=== PATIENT | female | born 1980 | race Caucasian/White ===

== ENCOUNTER 2019-02-15 03:32 | Inpatient (IN) | payer BC ==
[2019-02-15] MEDS ORDERED: Ondansetron PF 4 MG/2 ML Vial ONE ×2 (04:36→20:22)
[2019-02-15] MEDS ORDERED: Morphine 4 MG/ML VIAL ONE (04:36)
[2019-02-15] MEDS ORDERED: FLU VACC QS2019-20(6MOS UP)/PF 60 MCG/0.5 ML SYRINGE IM ONE (06:45)
[2019-02-15] MEDS ORDERED: Morphine 2 MG/ML SYRINGE SLOW IVP PRN ×3 (06:49→14:37)
[2019-02-15] MEDS ORDERED: Morphine 4 MG/ML VIAL IV PRN (06:50)
[2019-02-15] MEDS ORDERED: Ondansetron ODT 4 MG TAB PO PRN (06:50)
[2019-02-15] MEDS ORDERED: Ondansetron PF 4 MG/2 ML Vial IVP PRN ×2 (06:50→14:37)
--- NOTE | 2019-02-15 08:33 | ULT ---
PRELIMINARY REPORT/[facility]/EMERGENCY AFTER HOURS PROCEDURE: PROCEDURE INFORMATION: Exam: US Abdomen Limited, Right Upper Quadrant Exam date and time: 02/15/2019 4:11 AM Clinical history: 38 years old, female; Other: Diarrhea; Abdominal pain; Other: Epigastric pain that radiates to back TECHNIQUE: Imaging protocol: Real-time ultrasound of the abdomen with image documentation. Examination was focus ed on the right upper quadrant. COMPARISON: No relevant prior studies available. FINDINGS: Liver: Liver is enlarged. No masses. Gallbladder: There are multiple mobile shadowing gallstones. The gallbladder wall is thickened, approximately 8.5 mm. There is small volume of pericholecystic fluid tracking along the pancreatis he ad. Sonographic Mckenzie's sign is reportedly positive. Common bile duct: No stones. No dilation. Pancreas: Pancreas is partially obscured. Right kidney: No mass. Mild pelvocaliectasis. IMPRESSION: Findings most compatible with acute cholecystitis. Thank you for allowing us to participate in the care of your patient. Dictated and Authenticated by: Mariya Mcguire MD 02/15/2019 4:49 AM Central Time ([place] & [place]) FINAL REPORT EMERGENCY AFTER HOURS RIGHT UPPER QUADRANT ABDOMINAL ULTRASOUND: FINDINGS/IMPRESSION: I agree with the findings and impression given in the preliminary report per [facility] physician. There ar e gallstones within the gallbladder. There is a thickened gallbladder wall and a small amount of ed cholecystic fluid. This may be secondary to acute cholecystitis. Correlate with LFTs and white blood cell count.
[2019-02-15] MEDS ORDERED: Acetaminophen 1,000 MG in Premix Bag 1 BAG IVPB PRN (10:59)
[2019-02-15] MEDS ORDERED: Morphine 4 MG/ML VIAL SLOW IVP PRN ×2 (11:00→14:37)
[2019-02-15] MEDS ORDERED: Piperacillin/Tazobactam 3.375 GM VIAL ONE (13:24)
[2019-02-15] MEDS ORDERED: Sodium Chloride 0.9% 100 ML ONE (13:25)
[2019-02-15] MEDS ORDERED: Bupivacaine/Epinephrine 0.25% 30 ML VIAL ONE (13:27)
[2019-02-15] MEDS ORDERED: Midazolam HCl 2 mg/2 ml Vial ONE (13:37)
[2019-02-15] MEDS ORDERED: Fentanyl 100 MCG/2 ML VIAL ONE ×4 (13:37→15:41)
--- NOTE | 2019-02-15 13:59 | HP ---
CHIEF COMPLAINT: Abdominal pain. HISTORY OF PRESENT ILLNESS: This is a 38-year-old female with a history of pain in her upper abdomen, right worse than left, associated with nausea, started after dinner last night, severe pain overnight, came to the emergency room. After morphine and Toradol, she was still having the pain, admitted to my service for acute cholecystitis. She had, had this pain a few times before, but never is severe. PAST MEDICAL HISTORY: Includes hypertension and GERD. PAST SURGICAL HISTORY: She denies. MEDICATIONS: Include valsartan and pantoprazole. ALLERGIES: SULFA. SOCIAL HISTORY: Smokes. No alcohol or other drugs. REVIEW OF SYSTEMS: Ten-system review of systems is otherwise negative other than described above. PHYSICAL EXAMINATION: VITAL SIGNS: Blood pressure 102/64, pulse 60, respirations 20, and afebrile. HEENT: Sclerae anicteric. Oropharynx clear. NECK: No lymphadenopathy. CHEST: Clear. HEART: Regular rate and rhythm. ABDOMEN: Soft, tender in the upper abdomen, specifically right upper quadrant with localized guarding. No rebound. No abdominal or inguinal hernias. EXTREMITIES: No ischemia or edema to extremities. DIAGNOSTIC STUDIES: Ultrasound shows gallstones, evidence of acute cholecystitis. Liver function tests normal. ASSESSMENT: Acute cholecystitis. PLAN: Laparoscopic cholecystectomy. Risks, benefits and alternatives discussed. She gives consent. We will do this today. Job ID: [id number]
[2019-02-15] MEDS ORDERED: hydrALAZINE 20 MG/ML VIAL SLOW IVP PRN (14:37)
[2019-02-15] MEDS ORDERED: Dextrose 5% in Water 1,000 ML IV PRN (14:37)
[2019-02-15] MEDS ORDERED: Calcium Carbonate 500 MG ChewTAB PO PRN (14:37)
[2019-02-15] MEDS ORDERED: HYDROcodone/Acetaminophen 10/325 mg Tablet PO PRN (14:37)
[2019-02-15] MEDS ORDERED: Dextrose 50% Abboject 50 ML SYRINGE SLOW IVP PRN (14:37)
[2019-02-15] MEDS ORDERED: Mag-Al 1200 mg/1200 mg/30 ML UDCUP PO PRN (14:37)
[2019-02-15] MEDS ORDERED: D5 1/2 NS w/20 mEq KCL 1,000 ML IV SCH (14:37)
[2019-02-15] MEDS ORDERED: Promethazine HCl 25 MG/ML VIAL IM PRN ×2 (14:37→14:45)
[2019-02-15] MEDS ORDERED: Ondansetron HCl/PF 4 MG/2 ML Vial IVP PRN (14:45)
[2019-02-15] MEDS ORDERED: Promethazine HCl 25 MG/ML VIAL SLOW IVP PRN (14:45)
[2019-02-15 16:05] VITALS: TEMP 97.4
[2019-02-15 16:55] VITALS: BP 92/65
[2019-02-15] MEDS ORDERED: Lidocaine 1% PF 5 ML VIAL ONE (20:22)
[2019-02-15] MEDS ORDERED: Glycopyrrolate 0.2 MG/ML 5 ML SYRINGE ONE (20:22)
[2019-02-15] MEDS ORDERED: PROPOFOL 200 MG/20 ML VIAL ONE (20:22)
[2019-02-15] MEDS ORDERED: Dexamethasone 20 MG/5 ML VIAL ONE (20:22)
[2019-02-15] MEDS ORDERED: Rocuronium Bromide 10 MG/ML (10ML VIAL) ONE (20:22)
[2019-02-15] MEDS ORDERED: Ketorolac Tromethamine 30 MG/ML VIAL ONE (20:22)
[2019-02-15] MEDS ORDERED: Famotidine/PF 20 mg/2ml Vial SLOW IVP SCH (21:00)
[2019-02-15] MEDS ORDERED: Famotidine 20 MG TAB PO SCH (21:00)
[2019-02-16] MEDS ORDERED: Valsartan 80 MG TAB PO SCH (09:00)
[2019-02-16] MEDS ORDERED: Escitalopram Oxalate 10 mg Tablet PO SCH (09:00)
--- NOTE | 2019-02-16 14:27 | OP ---
DATE OF PROCEDURE: 02/15/2019 PREOPERATIVE DIAGNOSIS: Acute cholecystitis. POSTOPERATIVE DIAGNOSIS: Acute cholecystitis. PROCEDURE PERFORMED: Laparoscopic cholecystectomy. ANESTHESIA: General. ESTIMATED BLOOD LOSS: Minimal. COMPLICATIONS: None. SPECIMENS: Gallbladder. FINDINGS: Acute cholecystitis. PROCEDURE IN DETAIL: The patient was taken to the operating room and laid supine on the operating room table. After general anesthetic was obtained, the abdomen was prepped and draped in a sterile fashion. A curved incision was made below the umbilicus. Cautery was used to dissect down to the umbilical fascia. Umbilical fascia was incised and held up using a Kim. The abdominal cavity was entered using a Ann clamp. Holding stitch of Vicryl was placed on each side of the fascia. Bearden trocar was placed. High-flow pneumoperitoneum was obtained. An upper midline 5 mm port and 2 right upper quadrant 5 mm ports were placed under direct camera visualization. The gallbladder was retracted from the gallbladder fossa. The peritoneum of the gallbladder was opened anteriorly and posteriorly. The critical view triangle was seen showing only the cystic duct and cystic artery branching from medial to lateral. There were no other branching structures. Two clips were placed proximally on the cystic duct and one laterally. It was cut using laparoscopic scissors. The cystic artery was taken in the same way. Electrocautery was then used to dissect the gallbladder out of the gallbladder fossa. The gallbladder was placed in an Endo catch bag and brought out through the Bearden. There was no bleeding or bile in the liver bed. The cystic duct stump and cystic artery stump were intact, without evidence of extravasation or bleeding. All port sites were infiltrated using local anesthesia. All ports were removed under camera visualization. Pneumoperitoneum was let down. The Vicryl was used to close the fascial defect below the umbilicus. All incisions were irrigated and closed using 4-0 Monocryl and Dermabond. The patient was en route to Recovery in stable condition. All instrument counts, needle counts and lap counts were correct. Job ID: [id number]
== END 2019-02-15 17:33 | disposition home or self-care (01) | DRG 419 ==
LOC: ERS 03:32 → ERHOLD 04:51 → 3SE 06:01
PROVIDERS: ADMIT Surgery; ATTEND Surgery
PROC: 0FT44ZZ Resection of Gallbladder, Percutaneous Endoscopic Approach (ICD-10-PCS; principal; 2019-02-15)
DX: K81.0 Acute cholecystitis (principal); K21.9 Gastro-esophageal reflux disease without esophagitis; I10 Essential (primary) hypertension
CPT/HCPCS: 76705; 88304; 96374; 96375; J0131; J1100; J1885; J2001; J2250; J2270; J2405; J2543; J2704; J3010; J3490